=== PATIENT | female | born 1980 | race Caucasian/White ===

== ENCOUNTER → 2021-03-01 14:33 | Outpatient (CLI) | payer OTHER, SELFPAY ==
--- NOTE | 2021-03-01 14:42 | DI.RAD.S_ITS ---
PROCEDURE: XR LUMBAR SPINE 2-3V INDICATIONS: LBP/RADICULOPATHY TECHNIQUE: 3 views of the lumbar spine were acquired. COMPARISON: None. FINDINGS: Bones: 5 [id number] vertebrae are present. Trace dextrocurvature centered at the L3 level. Grade 1 spondylolisthesis at the L5-S1 level where there is mild disc degeneration. Mild L5-S1 facet joint arthropathy. No vertebral body compression fractures. No suspicious bony lesions. Soft tissues: Overlying bowel gas pattern is normal. No suspicious soft tissue calcifications. IMPRESSION: Grade 1 spondylolisthesis and mild disc degeneration at the L5-S1 level. Mild L5-S1 facet joint arthropathy. Dictated by: Abbe CULVER Interpreted: Mario Haile MD on 03/01/2021 at 16:59 Transcribed by: GERHARD on 03/01/2021 at 17:00 Approved by: Mario Haile M.D. on 03/01/2021 at 17:13
== END ==
PROVIDERS: PCP Physician Assistant Medical; Referring Provider Physician Assistant Medical; Visit Provider Physician Assistant Medical
DX: M54.5 Low back pain (principal); M51.17 Intervertebral disc disorders with radiculopathy, lumbosacral region; M47.27 Other spondylosis with radiculopathy, lumbosacral region; M43.17 Spondylolisthesis, lumbosacral region
CPT/HCPCS: 72100

== ENCOUNTER → 2021-04-13 13:53 | Outpatient (CLI) | payer BC, SELFPAY ==
--- NOTE | 2021-04-13 13:56 | DI.MRI.S_ITS ---
PROCEDURE: MR LUMBAR SPINE WO CON INDICATIONS: Spondylosis without myelopathy or radiculopathy, l TECHNIQUE: Noncontrast sagittal T1 spin echo and T2 fast echo, sagittal STIR, axial T1 and T2 fast spin echo through the lumbar spine. In cases with scoliosis, additional coronal T2 fast spin echo may be performed. COMPARISON: [facility], CR, XR LUMBAR SPINE 2-3V, 03/01/2021, 14:52. [facility] [place], CR, XR LUMBAR SPINE FLEXION EXTENSION, 04/03/2021, 15:25. FINDINGS: Image quality: Excellent. Alignment and Curvature: There is mild grade 1 anterolisthesis seen at the L5-S1 level. There are potential L5 pars defects, which are not well seen. Bone Marrow: Marrow is of normal overall signal. No acute vertebral body compression fractures. Spinal Cord: Conus medullaris terminates at the L1-L2 level. Visualized cord demonstrates normal signal and size. Paraspinous Soft Tissues: No paravertebral masses. T12-L1: Normal appearance. L1-L2: Normal appearance. L2-L3: Normal appearance. L3-L4: Normal appearance. L4-L5: The disc height and disk signal are well-preserved. Mild generalized disc bulge is seen. Mild to moderate facet hypertrophy is seen. Minimal to mild bilateral neural foraminal narrowing can be seen. No significant central canal narrowing is seen. L5-S1: The disc height and disc signal are relatively well preserved. Mild generalized disc bulge is seen. Prominent facet hypertrophy is seen at this level. There is moderate right-sided and moderate to severe left-sided neural foraminal narrowing seen. There is a degree of compression seen upon the exiting left L5 nerve root. No significant central canal narrowing is seen. IMPRESSION: Focal L5-S1 degenerative change is seen. Dictated by: Jakob Aguila M.D. on 04/13/2021 at 13:56 Approved by: Jakob Aguila M.D. on 04/13/2021 at 13:58
== END ==
PROVIDERS: PCP Physician Assistant Medical; Referring Provider Physical Medicine & Rehabilitation Pain Medicine; Visit Provider Physical Medicine & Rehabilitation Pain Medicine
DX: M47.816 Spondylosis without myelopathy or radiculopathy, lumbar region (principal); M47.817 Spondylosis without myelopathy or radiculopathy, lumbosacral region
CPT/HCPCS: 72148

== ENCOUNTER → 2021-12-04 09:23 | Outpatient (CLI) | payer BC, SELFPAY ==
[2021-12-04 12:03] LABS: COVID19 -Nasal RAPID Negative (Negative)
== END ==
PROVIDERS: PCP Physician Assistant Medical; Visit Provider Family Medicine Sleep Medicine
DX: Z20.822 Contact with and (suspected) exposure to COVID-19 (principal)
CPT/HCPCS: 87635; C9803

== ENCOUNTER 2021-12-07 16:16 | Observation (INO) | payer BC, SELFPAY ==
[2021-12-05 12:35] VITALS: BMI 27.8
[2021-12-06] VITALS (21 sets, daily range): BP systolic 103–154; BP diastolic 68–113; PULSE 75–103; RESP 10–22; TEMP 36.2–36.9; O2SAT 90–99; BMI 27.8
--- NOTE | 2021-12-06 | DI.RAD.S_ITS ---
PROCEDURE: XR LUMBAR SPINE 2-3V INDICATIONS: L5-S1 TLIF TECHNIQUE: 2 views of the lumbar spine were acquired. COMPARISON: [facility] [place], CR, XR LUMBAR SPINE FLEXION EXTENSION, 04/03/2021, 15:25. [facility], MR, MR LUMBAR SPINE WO CON, 04/13/2021, 14:13. [facility], CR, XR LUMBAR SPINE 2-3V, 03/01/2021, 14:52. FINDINGS: 2 intraoperative fluoroscopy images demonstrate discectomy and posterior fusion at L5-S1. IMPRESSION: Discectomy and posterior fusion at L5-S1. Dictated by: Veronique Lynn M.D. on 12/06/2021 at 16:51 Approved by: Veronique Lynn M.D. on 12/06/2021 at 16:52
[2021-12-06] MEDS: LACTATED RINGERS 1,000 ML 42 ML IV ×2 (08:15→10:38)
--- NOTE | 2021-12-06 08:39 | PM.PREOP ---
Pre-operative Note COVID-19 COVID-19 status: Negative Result date/Date tested (Pos, Neg/Pending): 12/05/21 Criteria for continued procedure: Expected advancement of disease process, Possibility delay results in more complex future surgery or treatment, Increased loss of function, Continuing or worsening of significant or severe pain, Deterioration of the patient's condition or overall health and Delay expected to result in less-positive ultimate med/surg outcome Interval Note History & Physical reviewed/Exam performed by Physician: Yes Changes to H&P: No
[2021-12-06] MEDS: CEFAZOLIN 2 GM/20 ML SYRINGE IV ×2 (09:05→17:03)
--- NOTE | 2021-12-06 09:17 | SUR.OPER ---
Prone on spine table, head in foam head support, padded chest and pelvic supports, gel pad at knees, lower legs supported by pillows; nipples, genitalia and toes free of pressure, arms secured on foam padded arm boards at <90 degrees abduction. Tape over blanket at thigh secured to table. Gel pad placed between heels.
[2021-12-06] MEDS: BUPIVACAINE 0.25% (PF) 30 ML, EPINEPHrine 0.15 MG INJ (09:46)
[2021-12-06] MEDS: BUPIVACAINE LIPOSOME 266 MG/20 ML VIAL INJ (11:20)
--- NOTE | 2021-12-06 12:02 | PM.OP.1 ---
Operative Date/Time/Diagnoses Date of procedure: 12/06/21 Time of procedure: 08:45 Pre-op diagnosis: 1. L5-S1 spondylolisthesis 2. L5-S1 spinal stenosis with radiculopathy Post-op diagnosis: same Procedure & Clinicians Procedure: 1. L5-S1 Postero-lateral and posterior interbody fusion 2. L5-S1 interbody cage placement. 3. L5-S1 decompressive laminectomy with bilateral facetecomies 4. L5-S1 Posterior non-segmental instrumentation 5. [place] of bone marrow from iliac crest 6. Utilization of microsurgical technique and operating microscope Same procedure as scheduled: Yes Indications: Patient has been having chronic back pain and worsening lumbar radiculopathy. Patient failed multiple conservative management with worsening pain weakness and numbness in her lower extremity. Patient has been having difficulty performing activity of daily living. After discussing risks benefits of treatment options, patient elected proceed with surgery. Surgeon: Birgit Macias Wet Process Miller Head: Irina Gallardo Click Yes if Unassisted: No Anesthesia Type: General Operative Notes Closure Type: primary Specimen(s): none sent Prosthetic devices, grafts, tissues, transplants, or devices: Globus revolve screws, Sable Cage Estimated Blood Loss (mL): 50 Blood products transfused: none Procedure in detail: Patient was seen in the preoperative area. Risks and benefits of the surgery was discussed with the patient. Informed consent was obtained from the patient and placed in the chart. Surgical site was marked. Patient was taken to the operative room. General anesthesia was administered. Prophylactic antibiotic was given to the patient less than 30 min before the incision was made. Patient was placed into a prone position on the Angel table. Patient's back was then prepped and draped in the sterile fashion. Time-out was performed at this time. Using AP and lateral C-arm imaging the interval between L5-S1 was identified and marked on patient's back. A 2 inch incision 2 in from midline was made on the left side first. The fascia was incised in line with skin incision. Globus MARS retractors was placed inside the incision and docked onto the L5 lamina. Using microsurgical technique and operating microscope, a L5 laminectomy and L5-S1 facetectomy was performed using a [place] rongeur. Patient was found have severe neural foraminal stenosis and required a total facetectomy for decompression which rendered L5-S1 grossly unstable and required a fusion procedure at the same time. There was significant amount of epidural lipomatosis contributing to additional spinal stenosis. Epidural lipomas were carefully resected from the epidural space to further decompress the epidural space. Disc space at L5-S1 was identified. And a total diskectomy was performed at L5-S1 level. The endplates were decorticated using a rasp and shaver. The total diskectomy and decortication was performed at L5-S1 level in order to to accomplish a L5-S1 fusion. The local bone from the laminectomy and facetectomy was saved for local bone grafting. After the total diskectomy and decortication was completed, Trifecta bone graft material was combined with local bone that was harvested earlier. At this time, a separate skin is incision was made over the iliac crest. A Jamshidi needle was inserted into the iliac crest through a separate skin incision. 5 cc of bone marrow aspiration was obtained through the separate skin incision using a Jamshidi needle from the iliac crest. The bone marrow aspiration was combined with local bone and the Trifecta bone grafting material. The bone grafting material was placed into the L5-S1 interbody space along with a expandable cage. The cage was expanded to its maximum height using the torque limiting screwdriver. Additional bone graft material was back filled after the cage was expanded. At this time a mirror image incision was made on the right side. The fascia was incised in line with the skin incision. Globus MARS retractor was inserted and docked onto the L5-S1 posterolateral gutter. Using the power drill, posterior-lateral decortication was performed at L5-S1 level until bleeding cortical bone was identified. The remaining bone grafting material was placed into the L5-S1 posterior lateral gutter he order to accomplish posterolateral fusion at the L5-S1 level. Using the double C-arm technique, pedicle screws were placed into the L5-S1 pedicles bilaterally. This was done by placing the Jamshidi needle into the pedicles, then placing the guidewires over the Jamshidi needle, and finally placing the cannulated screws over the guidewires bilaterally. After the pedicle screws were placed, 2 titanium rods was locked into the heads of the pedicle screws using locking caps and torque limiting screwdriver. Thread reducers were used to reduce the patient's spondylolisthesis. Anatomic reduction was accomplished. After all the hardware was placed, and confirmed with AP and lateral C-arm imaging, the wound was then irrigated with sterile normal saline and packed with Ray-Kevon gauze for 3 min to accomplish hemostasis. After the gauze was removed the deep fascia was closed with #1 Vicryl suture. The subcutaneous layer was closed with 2-0 Vicryl. The skin was closed with skin marleen. Patient tolerated the procedure well. There were no complications. Complications: none Post-operative Condition: stable Disposition: PACU Plan for aftercare: Admit to inpatient hospital
[2021-12-06] MEDS: HYDROMORPHONE 2 MG INJ IV ×2 (12:27→12:48)
[2021-12-06] MEDS: OXYCODONE IR 5 MG TABLET PO (12:39)
[2021-12-06] MEDS: HYDROMORPHONE 0.5 MG INJ IV ×3 (13:55→22:26)
[2021-12-06] MEDS: SODIUM CHLORIDE 0.9% 1,000 ML 100 ML IV (14:01)
[2021-12-06] MEDS: OXYCODONE IR 5 MG TABLET 10 MG PO ×2 (15:04→20:09)
[2021-12-06] MEDS: NICOTINE 14 PATCH 14 MG TOP (17:58)
--- NOTE | 2021-12-06 19:27 | PC.NURSE ---
Pt arrived from PACU around 1400, A&Ox4, tearful and c/o back pain 03/16. Sensation intact to LE, + pedal pulses. Dressing to lower back with small amount of shadowing, area marked. Pt oriented to room and call light. Around 1600, dressing noted to have increased drainage. Area marked. Around 1800, dressing leaking. Reinforced with 2 abd pads, Dr. Macias informed. Will continue to monitor.
[2021-12-06] MEDS: ATORVASTATIN 20 MG TABLET 10 MG PO (20:10)
[2021-12-06] MEDS: DOCUSATE 100 MG CAPSULE PO (20:10)
[2021-12-06] MEDS: SERTRALINE 50 MG TABLET 100 MG PO (20:10)
[2021-12-06] MEDS: SENNOSIDES 8.6 MG TABLET 17.2 MG PO (20:10)
[2021-12-06] MEDS: hydrOXYzine pamoate 25 MG CAPSULE PO (21:16)
[2021-12-06] MEDS: IBUPROFEN 600 MG TABLET PO (22:25)
[2021-12-06] MEDS: diazePAM 5 MG TABLET PO (22:47)
[2021-12-07] MEDS: CEFAZOLIN 2 GM/20 ML SYRINGE IV (00:51)
[2021-12-07] MEDS: HYDROMORPHONE 2 MG TABLET PO ×3 (00:52→12:39)
[2021-12-07 04:29] VITALS: BP 100/66; PULSE 80; RESP 16; TEMP 36.6; O2SAT 95
[2021-12-07] MEDS: DOCUSATE 100 MG CAPSULE PO ×2 (07:48→21:10)
[2021-12-07] MEDS: SERTRALINE 50 MG TABLET 100 MG PO ×2 (07:48→21:10)
[2021-12-07 08:29] VITALS: RESP 16; O2SAT 95
[2021-12-07 08:31] VITALS: BP 122/86; PULSE 84; RESP 17; TEMP 36.7; O2SAT 98
[2021-12-07] MEDS: OXYBUTYNIN 5 MG ER TAB 15 MG PO (09:15)
[2021-12-07] MEDS: LORazepam 1 MG TABLET PO (09:15)
[2021-12-07] MEDS: MECLIZINE HCL 12.5 MG TABLET 25 MG PO (09:15)
--- NOTE | 2021-12-07 09:59 | PC.NURSE ---
Addendum entered by Elisa Henning R.N. 12/07/21 14:34: Patient was up with PT earlier and had tear inducing pain afterwards, administered PRN pain medication and spasm relief. Upon reassessment patient reports pain is 3/10 and was able to get some sleep. Created a plan with patient to administer PO pain medication at available time to stay on top of pain for this afternoons PT session. Patient on board. Will continue to monitor. Call light in reach. Patient denies further needs at this time. Original Note: Patient A/Ox3, up to restroom with FWW and SBA. Denies N/V, SOB or chest pain. Endorses pain 4/10, periodic spasms, reports pain has improved with PO medication she received last night. Will continue to monitor. Reinforced dressing is CDI. VSS. CMS intact. Patient reports voiding without complication. Currently SL, tolerating intake. Denies abdominal pain or discomfort. BT active x 4. remains bedside. Call light in reach. Denies further needs at this time.
[2021-12-07] MEDS: diazePAM 5 MG TABLET PO ×2 (10:05→18:40)
--- NOTE | 2021-12-07 10:09 | OT.IP.EVAL ---
Current Diagnoses Spondylolisthesis, lumbosacral region (12/06/21) Spinal stenosis, lumbar region without neurogenic claudication (12/06/21) Surgery Performed Operation Date: 12/06/21 08:45 Actual Procedures p L5-S1 TLIF(Not Applicable) - Birgit Macias MD Past Medical History (Last Reviewed 12/07/21 @ 10:49 by Gila Carpenter PA-C) Anxiety Asthma Depression Easy bruisability History of section History of hysterectomy HLD (hyperlipidemia) Sinus drainage Spinal stenosis Spondylolisthesis [place] teeth removed Surgical History (Last Reviewed 12/07/21 @ 10:49 by Gila Carpenter PA-C) History of section History of hysterectomy [place] teeth removed Occupational Therapy Inpatient Evaluation/Re-Eval M2 OT-IP Current Condition Start: 12/07/21 12:21 Freq: Status: Active Protocol: Document 12/07/21 10:37 [facility] (Rec: 12/07/21 12:54 [facility] [id number]) Occupational Therapy Current Condition Current Condition Evaluation Date 12/07/21 Treatment Diagnosis S/p L5-S1 TLIF Diagnosis Onset Date 12/06/21 M3 OT- IP Subjective and Pain Start: 12/07/21 12:21 Freq: Status: Active Protocol: Document 12/07/21 10:37 [facility] (Rec: 12/07/21 12:54 [facility] [id number]) OT- Subjective Occupational Therapy Visit Type Type Initial Evaluation Visit Start Time 10:37 Visit Stop Time 11:05 Total Visit Minutes 28 Occupational Therapy Visit Comments Patient Comments Pt agreed to get up for OT eval. Patient/Caregiver Goals To go home. OT Pain Assessment Pain When Pain Assessed At Rest Pain Present Pain Present Pain Reported Location Lower Back Intensity 3 Scale Used Numeric (0 - 10) M4 OT- IP ADL's Start: 12/07/21 12:21 Freq: Status: Active Protocol: Document 12/07/21 10:37 [facility] (Rec: 12/07/21 12:54 [facility] [id number]) OT SYG-Tauy-Wjasccv General Evaluation Self-Feeding Ability Independent OT ADL-Grooming General Evaluation Areas Needing Assistance Retrieving/Set-up of Grooming Items OT ADL-Oral Care General Eval Oral Care Ability Standby Assistance Comments Oral Care Comments vc to hinge at her hips to spit or spit into a cup to best follow her back precautions OT ADL-Dressing General Eval Lower Body Dressing Ability Maximum Assistance Areas Needing Assistance Socks Comments OT Dressing Comments Initiated going over LB dressing equipment with pt. Pt states her will just assist her. OT ADL-Toileting General Evaluation Toileting Ability Maximum Assistance Areas Needing Assistance Manage Clothing,Perform Perineal Hygiene Comments OT Toileting Comments Pt unable to reach at this time while seated or standing. Showed pt example of toilet paper aid and that wet wipes would also be beneficial for her to use. Able to show pt technique of holding the FWW in one hand while the other one in assisting go help pull up /down the brief. While coming to stand pt states felt a pop, however noted no pain, nursing notified. When asked what it felt like, pt states, felt like when you pop your back. OT ADL-Bathing Comments OT Bathing Comments Not performed. M5 OT- IP IADL's Start: 12/07/21 12:21 Freq: Status: Active Protocol: Document 12/07/21 10:37 [facility] (Rec: 12/07/21 12:54 [facility] [id number]) OT-Instrumental Activities of Daily Living Home Safety Awareness Home Safety Comments Pt a little groggy and needing cues for back precautions and safety. At this time would be beneficial to have her to assist her for all her needs. M6 OT- IP Functional Cognition Start: 12/07/21 12:21 Freq: Status: Active Protocol: Document 12/07/21 10:37 [facility] (Rec: 12/07/21 12:54 [facility] [id number]) Cognitive Factors Limiting Selfcare Function Cognitive Ability Level of Alertness Alert Patient Orientation Name,Place,Situation Attention Span Ability Capable of Focused Attention, Capable of Sustained Attention Ability to Follow Commands Able to Follow One Step Commands Cognitive Comments Cognitive Assessment Comments Pt able to follow commands for bed mobility, toileting , and dressing needs. Pt a little groggy and needing cues not to hold her breath. OT- Vision and Hearing OT- Hearing Assessment OT- Hearing Assessment WFL OT- Vision Assessment Visual Acuity Glasses All The Time M7 OT- IP Mobility and Balance Start: 12/07/21 12:21 Freq: Status: Active Protocol: Document 12/07/21 10:37 [facility] (Rec: 12/07/21 12:54 [facility] [id number]) OT- Bed Mobility Assessment Rolling Type of Rolling Roll to Right Level of Assistance Contact Guard Assistance Supine to Sit Supine to Sit Assist Minimal Assistance Sit to Supine Sit to Supine Assist Moderate Assistance Scooting Scooting to Edge of Bed Contact Guard Assistance OT-Transfer Assessment Sit to and From Stand Sit to and from Stand Minimal Assistance,Moderate Assistance Transfers Transfer Ability Minimal Assistance Technique Transfer Destination Bed,Toilet Transfer Technique Stand Step Pivot Devices Transfer Assistive Devices Gait Belt,Front Wheeled Walker Comments Mobility Comments Pt needing min/mod to stand especially without use of grab bar or surface to push up from. Pt tends to want to grab the FWW to stand. Educated if doing so would be best to have her hold the FWW in place. Pt's states to get a FWW for her. OT- Balance Assessment Sitting Balance and Reactions Static Sitting Balance Ability Good Dynamic Sitting Balance Ability Fair Standing Balance and Reactions Static Standing Balance Ability Fair M9 OT- IP Assessment and Plan Start: 12/07/21 12:21 Freq: Status: Active Protocol: Document 12/07/21 10:37 [facility] (Rec: 12/07/21 12:54 [facility] [id number]) OT Summary Assessment and Plan Potential Rehabilitation Potential Good Analytic Complexity at Evaluation Low Summary OT Impairments Pain,Balance,Functional Mobility,Grooming,Dressing, Toileting,Bathing,Toilet Transfers,Shower Transfers, Activity Tolerance Progress Towards Goals Slow Progress due to Pain Assessment Summary Pt low complexity and main barriers are steps, pain, pt tends to hold her breath, and now needing extensive assist for dressing, toileting and bathing needs. Pt states to just have her assist her needs at home. Pt to go home when medically stable and her to be home to assist. Goals Grooming Goal Independent Dressing Goal Minimal Assistance Toileting Goal Minimal Assistance Bathing Goal Minimal Assistance Toilet Transfer Goal Standby Assistance Shower Transfer Goal Standby Assistance Patient/Caregiver Education Goal Caregiver Independent Assisting Patient Days to Meet Goals 5 Frequency of Treatment Frequency Of Treatment Once a Day Treatment Plan OT Treatment Plan ADL Training,Functional Cognition Training,Functional Mobility,Patient/Family Education,Discharge Planning Other Treatment Recommendations and Next shower/caregiver training Treatment Focus Discharge Recommendations OT Discharge Recommendations Home with 24/7 Assist Available Home Equipment Needs FWW Transportation Needs at Discharge Private Vehicle
--- NOTE | 2021-12-07 10:41 | P.PN_ITS ---
Subjective Subjective Date Patient Seen: 12/07/21 Time Patient Seen: 10:48 Interval history: Patient is complaining of moderate to severe low back pain. She also has bilateral lower extremity pain. She denies any new numbness or tingling. No nausea or vomiting. She does have several sets of stairs at home. She is just now getting up with physical therapy. Exam Vital Signs (past 8 hours): - 12/07/21 04:29 12/07/21 08:29 12/07/21 08:31 Temperature 97.8 F 98.0 F Pulse Rate 80 84 Respiratory Rate 16 16 17 Blood Pressure 100/66 122/86 Pulse Oximetry 95 95 98 Fraction of Inspired Oxygen 21 Oxygen Delivery Method Room Air Oxygen Flow Rate 0 Narrative Exam Narrative: 41-year-old female, sitting comfortably at the side of the bed, no acute distress. Dressing is reinforce but it is current lead clean, dry, intact. Bilateral lower extremity: Motor function is grossly intact, sensation is grossly intact to light touch, calves are soft and nontender to palpation. PFSH Medical History Anxiety Asthma Depression Easy bruisability HLD (hyperlipidemia) Sinus drainage Spinal stenosis Spondylolisthesis Surgical History History of section History of hysterectomy [place] teeth removed Social History household members: spouse and children Smoking Status: Current every day smoker alcohol intake: current Assessment & Plan Post-op Postoperative Procedures: Procedures Operation Date: 12/06/21 08:45 Actual Procedure Side Surgeon p L5-S1 TLIF Not Applicable Birgit Macias MD Postoperative day: 1 Postoperative status: marginal pain control Postoperative status narrative: Stable status post L5-S1 TLIF Postoperative plan narrative: -mobilize with PT. Limit bending, lifting, twisting. Weightbearing as tolerated with front wheel walker -continue with current pain regimen, the patient required p.o. Dilaudid this morning, which is controlling her pain -DC home today versus tomorrow, depending on PT clearance and how she does with stairs and pain control. Quality VTE Deep Vein Thrombosis/Pulmonary Embolism Present on Admission: No
--- NOTE | 2021-12-07 11:45 | PT.IIE ---
Current Diagnoses Spondylolisthesis, lumbosacral region (12/06/21) Spinal stenosis, lumbar region without neurogenic claudication (12/06/21) Surgery Performed Operation Date: 12/06/21 08:45 Actual Procedures p L5-S1 TLIF(Not Applicable) - Birgit Macias MD Medical History (Last Reviewed 12/07/21 @ 10:49 by Gila Carpenter PA-C) Anxiety Asthma Depression Easy bruisability HLD (hyperlipidemia) Sinus drainage Spinal stenosis Spondylolisthesis Physical Therapy Inpatient Evaluation/Re-Eval M1 PT/OT-IP Prior Functional Status Start: 12/07/21 12:46 Freq: NEEDED Status: Active Protocol: Document 12/07/21 11:45 AB (Rec: 12/07/21 12:56 AB [id number]) Medical Review Prior Functional Status Medical History Reviewed Yes Communication able to make needs known Mobility and Gait pt stated that she is independent with all mobilities and ambulation without AD Social History Household Members spouse,children Living Arrangements House Number of Floors (Floors) 3 or More Floors Number of Stairs To Enter/Railing? 8 steps B rails +landing +8 steps B rails to get to living area where pt will stay Home Environment Standard Height Toilet,Tub/ Shower Home Equipment Front Wheel Walker,Shower Seat without Backrest,Hand Held Shower,Grab Bars In Shower M2 PT-IP Current Condition Start: 12/07/21 12:46 Freq: NEEDED Status: Active Protocol: Document 12/07/21 11:45 AB (Rec: 12/07/21 12:56 AB [email or web address]) Physical Therapy Current Condition Current Condition Evaluation Date 12/07/21 Treatment Diagnosis s/p L5S1 TLIF; difficulty in walking Onset Date 12/06/21 M3 PT-IP Subjective Start: 12/07/21 12:46 Freq: NEEDED Status: Active Protocol: Document 12/07/21 11:45 AB (Rec: 12/07/21 12:56 AB [id number]) Subjective Physical Therapy Visit Type Type Initial Evaluation Visit Start Time 11:45 Visit Stop Time 12:15 Total Visit Minutes 30 Number of CORE FITTER Visits 0 Physical Therapy Visit Comments Patient Comments able to make needs known Therapy Pain Assessment Pain When Pain Assessed At Rest Pain Present Pain Present Pain Reported Location Lower Back Intensity 5 Scale Used increases with mobility Pain Behaviors Guarding,Wincing Pain Management Techniques Apply Cold,Distraction, Modification of Treatment,Re- positioning,Timing of Activity with Medications M4 PT-IP Mobility and Gait Start: 12/07/21 12:46 Freq: NEEDED Status: Active Protocol: Document 12/07/21 11:45 AB (Rec: 12/07/21 12:56 AB [email or web address]) PT-Bed Mobility Assessment Rolling Type of Rolling Log Rolling Level of Assist Minimal Assistance Supine to Sit Supine to Sit Minimal Assistance PT-Transfer Assessment Sit to and From Stand Sit to and from Stand Moderate Assistance,1 Person Assistance,Use of Upper Extremities Equipment Transfer Assistive Device Gait Belt,Front Wheeled Walker Orthotic/Prosthetic Devices or Brace: No Transfers Transfer Destination Toilet Transfer Technique ambulated Transfer Ability Level of Assist Minimal Assistance Comments Mobility Comments reviewed back precautions with pt and pt required cues to recall. spouse in room with pt. pt completed supine to sit log roll min A and max cues for techniques. pt able to sit on EOB SBA. completed sit to stand mod A and cues and requested to use the toilet and ambulated using FWW min A. completed sit to stand fromt he toilet using grab bar mod A and cues and required min A for standing balance while pt completes hygiene care and brief management. pt ambulated towards the sink using FWW min A, min A for standing balance while completing handwashing. ambulated more in room using FWW ~ 10 ft and just wants to sit on chair for now. positioned pt on chair. set up for lunch. table and call light next to pt. informed pt and spouse regarding caregiver training in the afternoon and agreed. Gait Assessment Gait Gait Assistance Required: Minimum Assistance Distance (Feet) 25 Able to Maintain Weight Bearing Status Yes During Gait PT-Balance Assessment Sitting Balance and Reactions Static Sitting Balance Ability Good Dynamic Sitting Balance Ability Fair Standing Balance and Reactions Static Standing Balance Ability Fair Dynamic Standing Balance Ability Fair Device Used FWW M5 PT-IP Objective Assessments Start: 12/07/21 12:46 Freq: NEEDED Status: Active Protocol: Document 12/07/21 11:45 AB (Rec: 12/07/21 12:56 AB [email or web address]) Orientation Orientation/Cognition Level of Alertness Alert Orientation Name Language Function Ability No Deficits Noted Safety Awareness Decreased Safety Awareness Memory Description Short Term Impaired Gross Range of Motion Lower Extremity ROM Assessment Within Functional Limits Strength Lower Extremity Strength Assessment Bilaterally Impaired Hip 3+/5 Knee 4-/5 Sensation Assessment Sensation Gross Sensation WNL Muscle Tone Muscle Tone WNL Yes M6 PT-IP Treatment Start: 12/07/21 12:46 Freq: NEEDED Status: Active Protocol: Document 12/07/21 11:45 AB (Rec: 12/07/21 12:56 AB [email or web address]) Physical Therapy Treatment Education Education Provided Precautions,Weight Bearing Status,Safety M7 PT-IP Assessment and Plan Start: 12/07/21 12:46 Freq: NEEDED Status: Active Protocol: Document 12/07/21 11:45 AB (Rec: 12/07/21 12:56 AB [email or web address]) PT Summary Assessment and Plan Potential Rehabilitation Potential Fair Status of Condition at Evaluation Evolving Summary Impairments Pain,ROM,Strength,Balance, Coordination,Sensation,Tone, Cognition,Bed Mobility, Transfers,Gait,Activity Tolerance Assessment Summary pt requiring min to mod A with mobility using fWW and c/o increase back pain affecting mobility. pt plans to go home with spouse to assist her. will conduct caregiver training when appropriate. pt also has ~ 16 steps with B rails to get to main living area of the house and needs to be able to safely complete prior to d/c home. pt with c /o increas pain this morning and presents with decrease activity tolerance and unable to ambulate farther or do stair climbing. will continue to assess progress. Goals Bed Mobility Goal Standby Assistance Transfer Goal Standby Assistance,Front Wheeled Walker Gait Goal Standby Assistance,Front Wheel Walker Gait Distance 200 Other Goals up/down 16 steps B rails SBA Days to Meet Goals 10 Frequency of Treatment Frequency Of Treatment Twice a Day Treatment Plan Physical Therapy Treatment Plan Bed Mobility Training,Transfer Training,Gait Training, Therapeutic Exercise,Balance Retraining,Post Op Education, Discharge Planning,Hot or Cold Pack,Neuromuscular Re-ed, Coordination Retraining,Manual Therapy Precautions Lumbar Precautions Log Roll,No Twisting,Limit Bending,Lifting Restriction of 10 lbs,Gait Belt above Incisional Area Recommendations To Nursing Amount of Assist Needed 1 Person Assist Discharge Recommendations PT Discharge Recommendations Home with 29/04 Assist Available,Home Health Transportation Needs at Discharge Private Vehicle
[2021-12-07] MEDS: hydrOXYzine pamoate 25 MG CAPSULE PO ×2 (12:55→21:13)
[2021-12-07] MEDS: OXYCODONE IR 5 MG TABLET 10 MG PO ×3 (13:07→21:12)
[2021-12-07] MEDS: IBUPROFEN 600 MG TABLET PO ×2 (13:08→21:11)
--- NOTE | 2021-12-07 14:17 | CM.DANOTE ---
Patient is a 41 yo female who was admitted on 12/06/21 for TLIF fusion. Pt has [employer] for insurance and her PCP is Ronnell Hernandez. EMR was reviewed. Per Ortho MD, pt tolerated procedure well and per PA pt stable but with some pain and likely not stable for d/c yet today, awaiting further PT. Per PT/OT, pt was able to participate and still need to do CG training and stairs as pt has about 16 steps to enter. Recommending home with assist and possible HH. SW met bedside with pt and spouse briefly as pt was very tired and getting painful and SW explained role and they confirm they live at home in [place] with children and pt is independent at baseline and drives and does not use DME. Spouse confirms he can assist at d/c and seems supportive and unclear if pt will meet criteria for homebound status for HH and SW to follow for further PT/OT towards determining d/c needs especially after stairs training. Plan: SW to follow closely for plan of d/c home with supportive spouse and r/o HH. ROBINSON Dey Discharge Planning/Care Management CM Discharge Assessment Start: 12/07/21 14:14 Freq: Status: Active Protocol: Document 12/07/21 14:14 BF (Rec: 12/07/21 14:16 BF [id number]) Discharge Planning Assessment Assigned Environmental Engineering Manager ROBINSON Guillaume DPOA/Assigned Designee Name informally spouse Michael Contact Information [phone] Advance Directives? Yes Advance Directives on File No History Provided By Patient,Significant Other, Medical Record Has Patient been admitted in last 30 No days? Prior Living Arrangements House Household Members spouse,children Type of transporation used prior to Drives own vehicle admit Independent with ADL's Yes Is patient alert and oriented? Yes Caregiver for Another Yes Community Services used prior to Physical Therapy admission: Patient/Family Preference Home with Home Health,OP PT Therapy Comment r/o HH, although back surgery and may not meet Homebound status and therapy Barriers to Discharge No Discharge Plan Home Transportation Arrangement Spouse bedside and can transport Additional Comment r/o HH vs outpt Whiteboard Updated in Patient Room with Yes name and ext. # of Environmental Engineering Manager Review Status In Process Please Provide Date Initial DC 12/07/21 Assessment Was Performed Next Review Type Continued Stay Review Pre-Anesthesia Assessment Start: 12/05/21 12:35 Freq: Status: Complete Protocol: Document 12/05/21 12:35 CAB (Rec: 12/05/21 13:23 CAB [id number]) Pre-Anesthesia Assessment PAC Comment Pt would like a nicotine patch while in-house Patient Information Reviewed Via Phone Assessment Assessment Completed With Patient H&P Completed Within 30 Days Yes Diagnostic Results BMP/CMP,CBC Comment Outside labs scanned, COVID screen @ [facility] 12/04/21 Negative Primary Care Provider Ronnell Hernandez Seen Specialist in Last 12 Months Yes Specialist Seen Orthopedist Primary Language Kinyarwanda Quarter Lining Smoother Required No Height 154.94 cm Weight 66.678 kg Body Mass Index (BMI) 27.8 Hearing Ability Normal Visual Assist Glasses Dentition Type Teeth, Natural Present Barriers to Learning None Hx Anesthesia Reactions No Hx Family Anesthesia Reaction No Hx Malignant Hyperthermia No Hx Blood Transfusions No Anesthesia Review Requested No Transformer Builder No alcohol intake current alcohol intake frequency 3 or more drinks per day Smoking Status Current every day smoker Tobacco type cigarettes Smoking packs per day 1 Substance Use Type other Pain Present Pain Reported Musculoskeletal Symptoms Back Pain,Numbness,Radiating Pain into Limb History of Falling (Recent or History of Yes ) Patient is completely paralyzed or No completely immobile Mental Status Oriented to own ability Is patient on oxygen? No Does patient have [place]/SOB Yes: r/t seasonal allergies, asthma Hx Sleep Apnea No Currently Taking a Beta Marisabel No Can You Climb a Flight of Stairs Without Yes SOB Hx Chest Pain No Hx SOB Yes: r/t seasonal allergies, asthma Hx Syncope or Dizziness Yes: Vertigo Anti-Coagulant Therapy No Has a Liquid Yeast Supervisor No Cardiac Testing No Hx Pacemaker/ICD No Pacemaker Rep Required? 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 Received a COVID vaccine? Yes Received all doses? Yes Marital Status Lives With spouse,children Prior Living Arrangements House Number of Floors (Floors) Two Floors Support System Child/Children,Spouse Does the Patient Have Assistance After Yes Surgery Patient Discharge Plan Description Return Home Comment Pt advised overnight length of stay per surgeon Feels Safe in Current Environment Yes Been Physically Hurt or Threatened By a No Person in Current Environment Do you have thoughts of harming yourself None or others? Are you currently considering suicide? No Do you have a plan to hurt yourself or No Plan others? Do You Have Any Spiritual Beliefs That No May Affect Your HC Choices? Do You Have Any Cultural Practices That No May Affect Your HC Choices? Comment Caodaism Who Can We Speak to About Patient's Care Family, friends Identifying Code for Release of Patient Declines to issue Information Health Care Proxy/Next of Kin Jaspal ()Scarlet ( daughter) Health Care Proxy Phone Number Jaspal: [phone] Scarlet: [phone] Emergency Contact Name Jaspal ()Scarlet ( daughter) Emergency Contact Phone Number Jaspal: [phone] Scarlet: [phone] Advance Directives? Yes Advance Directives on File No Requested Patient Bring Advanced Yes Directives DOS Power of Rubber Down Yes Power of Rubber Down Name Jaspal () Power of Rubber Down PAC Instructions Durable medical equipment, Medications to take/avoid, Nasal antibiotic,No ETOH/ petroleum product on skin DOS, NPO,Sensory aids,Sturdy shoes/ comfortable clothes,Do not bring valuables and remove jewelry
--- NOTE | 2021-12-07 15:10 | PT.IPTN ---
Current Diagnoses Spondylolisthesis, lumbosacral region (12/07/21) Spinal stenosis, lumbar region without neurogenic claudication (12/07/21) Surgery Performed Operation Date: 12/06/21 08:45 Actual Procedures p L5-S1 TLIF(Not Applicable) - Birgit Macias MD Physical Therapy Treatment Note M2 PT-IP Current Condition Start: 12/07/21 12:46 Freq: NEEDED Status: Active Protocol: Document 12/07/21 11:45 AB (Rec: 12/07/21 12:56 AB [email or web address]) Physical Therapy Current Condition Current Condition Evaluation Date 12/07/21 Treatment Diagnosis s/p L5S1 TLIF; difficulty in walking Onset Date 12/06/21 M3 PT-IP Subjective Start: 12/07/21 12:46 Freq: NEEDED Status: Active Protocol: Document 12/07/21 14:43 KS (Rec: 12/07/21 16:38 KS [id number]) Subjective Physical Therapy Visit Type Type Treatment Note Visit Start Time 14:43 Visit Stop Time 15:10 Total Visit Minutes 27 Number of OLIVE PICKER Visits 1 Physical Therapy Visit Comments Patient Comments Pt agreeable to work w/ therapy. Therapy Pain Assessment Pain When Pain Assessed At Rest Pain Present Pain Present Pain Reported Location Lower Back Intensity 3 Scale Used increases with mobility Pain Behaviors Guarding,Wincing Pain Management Techniques Apply Cold,Distraction, Modification of Treatment,Re- positioning,Timing of Activity with Medications M4 PT-IP Mobility and Gait Start: 12/07/21 12:46 Freq: NEEDED Status: Active Protocol: Document 12/07/21 14:43 KS (Rec: 12/07/21 16:38 KS [id number]) PT-Bed Mobility Assessment Rolling Type of Rolling Log Rolling,Roll to Left Level of Assist Contact Guard Assistance Supine to Sit Supine to Sit Minimal Assistance,1 Person Assistance Sit to Supine Sit to Supine Minimal Assistance,1 Person Assistance Scooting Scooting to Edge of Bed Contact Guard Assistance PT-Transfer Assessment Sit to and From Stand Sit to and from Stand Contact Guard Assistance,1 Person Assistance,Use of Upper Extremities Equipment Transfer Assistive Device Gait Belt,Front Wheeled Walker Orthotic/Prosthetic Devices or Brace: No Transfers Transfer Destination Bed,Wheelchair Transfer Technique ambulated w/ FWW Transfer Ability Level of Assist Minimal Assistance Comments Mobility Comments Pt in bed upon arrival and able to recall 3/3 spinal precautions. CGA for logroll and Min A for sidelying<>sit. CGA for scooting EOB and CGA w / cues for hand placement for sit<>Stand w/ FWW. Demonstrated gait belt application and stabilizing FWW to pts spouse and he verbalized understanding. Pt BP: 104/73 and denied lightheadedness. Pt ambulated ~50 ft from room to practice steps. She then ascended/ descended 3 steps x3 w/ bilateral hand rails and step to pattern CGA on first set by this OLIVE PICKER and CGA by on 2nd and 3rd sets. Pt sat in w/c for transport back to room due to increase in pain. CGA for sit<>stand from w/c and stand<>sit EOB. Min A and cues for sit<>sidelying and scooting back in bed. Pt left in bed w/ alarm on and all needs in reach. Gait Assessment Gait Gait Assistance Required: Contact Guard Assist Distance (Feet) 60 Able to Maintain Weight Bearing Status Yes During Gait Assistive Devices Assistive Device Gait Belt,Front Wheeled Walker Gait Deviations General Gait Pattern Decreased Feet Clearance, Narrow Based Gait Factors Limiting Gait Function Factors Limiting Gait Function Decreased Activity Tolerance, Pain Comments Gait Comments Pt ambulated a total of 60 ft w/ FWW CGA, decreased foot clearance and NBOS. Good use of FWW and w/ good upright posture and forward gaze. Stair Climbing Assessment Evaluation Level of Assist On Stairs Contact Guard Assistance,1 Person Assistance Devices Stair Climbing Assistive Devices Left Railing,Right Railing Technique/Endurance Stair Climbing Direction Ascend and Descend Stair Climbing Technique Step to Step Number of Steps Climbed 3 Stair Climbing Set # Repetitions (reps) 3 Comments Stair Climbing Comments Pt ascended/descended 9 total steps w/ CGA and step to pattern utlizing bilateral hand rails. Able to complete w / providing appropriate assist. Pt has 16 steps to get to bedroom however has split level home and has couch after 8 steps that she can rest on if needed before ascending final 8 steps to bedroom. Pt and spouse state they feel safe to navigate steps at home. PT-Balance Assessment Sitting Balance and Reactions Static Sitting Balance Ability Good Dynamic Sitting Balance Ability Fair Standing Balance and Reactions Static Standing Balance Ability Good Dynamic Standing Balance Ability Fair Device Used FWW M5 PT-IP Objective Assessments Start: 12/07/21 12:46 Freq: NEEDED Status: Active Protocol: Document 12/07/21 11:45 AB (Rec: 12/07/21 12:56 AB [id number]) Orientation Orientation/Cognition Level of Alertness Alert Orientation Name Language Function Ability No Deficits Noted Safety Awareness Decreased Safety Awareness Memory Description Short Term Impaired Gross Range of Motion Lower Extremity ROM Assessment Within Functional Limits Strength Lower Extremity Strength Assessment Bilaterally Impaired Hip 3+/5 Knee 4-/5 Sensation Assessment Sensation Gross Sensation WNL Muscle Tone Muscle Tone WNL Yes M6 PT-IP Treatment Start: 12/07/21 12:46 Freq: NEEDED Status: Active Protocol: Document 12/07/21 14:43 KS (Rec: 12/07/21 16:38 KS [id number]) Physical Therapy Treatment Education Education Provided Precautions,Weight Bearing Status,Safety Other Treatments Other Treatment Performed Initiated caregiver training w / pts spouse who was shown how to apply gait belt, assist w/ transfers and FWW stabilization, and getting into and out of bed. He was able to assist pt w/ stairs. Will benefit from another caregiver session to practice and assess carryover. M7 PT-IP Assessment and Plan Start: 12/07/21 12:46 Freq: NEEDED Status: Active Protocol: Document 12/07/21 14:43 KS (Rec: 12/07/21 16:38 KS [id number]) PT Summary Assessment and Plan Potential Rehabilitation Potential Good Status of Condition at Evaluation Evolving Summary Impairments Pain,ROM,Strength,Balance, Coordination,Sensation,Tone, Cognition,Bed Mobility, Transfers,Gait,Activity Tolerance Assessment Summary Pt requring CGA to Min A for mobility this PM and able to recall spinal precautions. Pt ambulated ~60 ft total and ascended/descended 9 steps w/ CGA and BHR. Initiated caregiver training w/ pt spouse however they will benefit from one additional session to ensure pt spouse has good carryover and is able to assist pt in and out of bed while maintaining spinal precautions. Anticipate pt will be able to return home w/ assistance. Goals Bed Mobility Goal Standby Assistance Transfer Goal Standby Assistance,Front Wheeled Walker Gait Goal Standby Assistance,Front Wheel Walker Gait Distance 200 Other Goals up/down 16 steps B rails SBA Days to Meet Goals 10 Frequency of Treatment Frequency Of Treatment Twice a Day Treatment Plan Physical Therapy Treatment Plan Bed Mobility Training,Transfer Training,Gait Training, Therapeutic Exercise,Balance Retraining,Post Op Education, Discharge Planning,Hot or Cold Pack,Neuromuscular Re-ed, Coordination Retraining,Manual Therapy Precautions Lumbar Precautions Log Roll,No Twisting,Limit Bending,Lifting Restriction of 10 lbs,Gait Belt above Incisional Area Recommendations To Nursing Amount of Assist Needed 1 Person Assist Discharge Recommendations PT Discharge Recommendations Home with 24/ Assist Available,Home Health Transportation Needs at Discharge Private Vehicle
[2021-12-07 17:59] VITALS: BP 128/70; PULSE 84; RESP 16; TEMP 36.4; O2SAT 97
[2021-12-07] MEDS: SENNOSIDES 8.6 MG TABLET 17.2 MG PO (21:10)
[2021-12-07] MEDS: ATORVASTATIN 20 MG TABLET 10 MG PO (21:11)
[2021-12-07] MEDS: NICOTINE 14 PATCH 14 MG TOP (23:02)
[2021-12-08] MEDS: OXYCODONE IR 5 MG TABLET 10 MG PO ×4 (00:11→09:15)
[2021-12-08 00:16] VITALS: BP 103/66; PULSE 85; RESP 16; TEMP 36.6; O2SAT 94
[2021-12-08 04:36] VITALS: BP 101/66; PULSE 74; RESP 16; TEMP 36.6; O2SAT 94
[2021-12-08] MEDS: IBUPROFEN 600 MG TABLET PO (05:52)
[2021-12-08] MEDS: DOCUSATE 100 MG CAPSULE PO (08:40)
[2021-12-08] MEDS: OXYBUTYNIN 5 MG ER TAB 15 MG PO (08:40)
[2021-12-08] MEDS: MECLIZINE HCL 12.5 MG TABLET 25 MG PO (08:40)
[2021-12-08] MEDS: SERTRALINE 50 MG TABLET 100 MG PO (08:41)
[2021-12-08] MEDS: LORazepam 1 MG TABLET PO (08:41)
--- NOTE | 2021-12-08 09:45 | PT.IPTN ---
Current Diagnoses Spondylolisthesis, lumbosacral region (12/07/21) Spinal stenosis, lumbar region without neurogenic claudication (12/07/21) Arthrodesis status (12/07/21) Surgery Performed Operation Date: 12/06/21 08:45 Actual Procedures p L5-S1 TLIF(Not Applicable) - Birgit Macias MD Physical Therapy Treatment Note M2 PT-IP Current Condition Start: 12/07/21 12:46 Freq: NEEDED Status: Discharge Protocol: Document 12/07/21 11:45 AB (Rec: 12/07/21 12:56 AB [id number]) Physical Therapy Current Condition Current Condition Evaluation Date 12/07/21 Treatment Diagnosis s/p L5S1 TLIF; difficulty in walking Onset Date 12/06/21 M3 PT-IP Subjective Start: 12/07/21 12:46 Freq: NEEDED Status: Discharge Protocol: Document 12/08/21 09:33 [place] (Rec: 12/08/21 11:43 KS [id number]) Subjective Physical Therapy Visit Type Type Treatment Note Visit Start Time 09:33 Visit Stop Time 09:45 Total Visit Minutes 12 Notes Spouse present for caregiver training. Number of MOTOR SETTER Visits 2 Physical Therapy Visit Comments Patient Comments Pt agreeable to work w/ therapy. M4 PT-IP Mobility and Gait Start: 12/07/21 12:46 Freq: NEEDED Status: Discharge Protocol: Document 12/08/21 09:33 [place] (Rec: 12/08/21 11:43 [place] [id number]) PT-Bed Mobility Assessment Rolling Type of Rolling Log Rolling,Roll to Right Level of Assist Contact Guard Assistance Supine to Sit Supine to Sit Contact Guard Assistance,1 Person Assistance Sit to Supine Sit to Supine Minimal Assistance,1 Person Assistance Scooting Scooting to Edge of Bed Contact Guard Assistance PT-Transfer Assessment Sit to and From Stand Sit to and from Stand Contact Guard Assistance,1 Person Assistance,Use of Upper Extremities Equipment Transfer Assistive Device Gait Belt,Front Wheeled Walker Orthotic/Prosthetic Devices or Brace: No Transfers Transfer Destination Bed Transfer Technique ambulated w/ FWW Transfer Ability Level of Assist Minimal Assistance Comments Mobility Comments Pt in bed and spouse in room. Pt able to recall 3/3 spinal precautions. Pts spouse provided appropriate assist and cues as needed throughout treatment. Pt CGA for logroll and sidelying<>sit, pt spouse able to don gaitbelt and pt scooted EOB CGA. CGA for sit<> Stand w/ FWW> Pt ambulated ~60 ft around room w/ spouse CGA w/ FWW. Pts spouse then provided Min A for pt sit<> sidelying for LE elevation. Pt and spouse state they feel safe to return home. Gait Assessment Gait Gait Assistance Required: Contact Guard Assist Distance (Feet) 60 Able to Maintain Weight Bearing Status Yes During Gait Assistive Devices Assistive Device Gait Belt,Front Wheeled Walker Gait Deviations General Gait Pattern Decreased Feet Clearance, Narrow Based Gait Factors Limiting Gait Function Factors Limiting Gait Function Decreased Activity Tolerance, Pain Comments Gait Comments Pt ambulated a total of 60 ft w/ FWW CGA, decreased foot clearance and NBOS. Good use of FWW and w/ good upright posture and forward gaze. Stair Climbing Assessment Comments Stair Climbing Comments pt does not wish to assess again as she successfully completed steps yesterday. PT-Balance Assessment Sitting Balance and Reactions Static Sitting Balance Ability Good Dynamic Sitting Balance Ability Fair Standing Balance and Reactions Static Standing Balance Ability Good Dynamic Standing Balance Ability Fair Device Used FWW M5 PT-IP Objective Assessments Start: 12/07/21 12:46 Freq: NEEDED Status: Discharge Protocol: Document 12/07/21 11:45 AB (Rec: 12/07/21 12:56 AB [id number]) Orientation Orientation/Cognition Level of Alertness Alert Orientation Name Language Function Ability No Deficits Noted Safety Awareness Decreased Safety Awareness Memory Description Short Term Impaired Gross Range of Motion Lower Extremity ROM Assessment Within Functional Limits Strength Lower Extremity Strength Assessment Bilaterally Impaired Hip 3+/5 Knee 4-/5 Sensation Assessment Sensation Gross Sensation WNL Muscle Tone Muscle Tone WNL Yes M6 PT-IP Treatment Start: 12/07/21 12:46 Freq: NEEDED Status: Discharge Protocol: Document 12/08/21 09:33 KS (Rec: 12/08/21 11:43 KS [id number]) Physical Therapy Treatment Education Education Provided Precautions,Weight Bearing Status,Safety Other Treatments Other Treatment Performed Completed caregiver training w / pts spouse who was able to prpvide appropriate assist for bed mobility, transfers, and ambulation and gait belt application. M7 PT-IP Assessment and Plan Start: 12/07/21 12:46 Freq: NEEDED Status: Discharge Protocol: Document 12/08/21 09:33 KS (Rec: 12/08/21 11:43 KS [id number]) PT Summary Assessment and Plan Potential Rehabilitation Potential Good Status of Condition at Evaluation Evolving Summary Impairments Pain,ROM,Strength,Balance, Coordination,Sensation,Tone, Cognition,Bed Mobility, Transfers,Gait,Activity Tolerance Assessment Summary Completed caregiver training w / pts spouse who was able to provide all necessary assist and cues, pt CGA for mobility, transfers, and ambulation w/ FWW as well as stairs aside from LE elevation into bed which she occassionally requires Min A for. Pt able to recall and adhere to precautions and states she feels safe and ready to return home w/ spouse support. Goals Bed Mobility Goal Standby Assistance Transfer Goal Standby Assistance,Front Wheeled Walker Gait Goal Standby Assistance,Front Wheel Walker Gait Distance 200 Other Goals up/down 16 steps B rails SBA Days to Meet Goals 10 Frequency of Treatment Frequency Of Treatment Twice a Day Treatment Plan Physical Therapy Treatment Plan Bed Mobility Training,Transfer Training,Gait Training, Therapeutic Exercise,Balance Retraining,Post Op Education, Discharge Planning,Hot or Cold Pack,Neuromuscular Re-ed, Coordination Retraining,Manual Therapy Precautions Lumbar Precautions Log Roll,No Twisting,Limit Bending,Lifting Restriction of 10 lbs,Gait Belt above Incisional Area Recommendations To Nursing Amount of Assist Needed 1 Person Assist Discharge Recommendations PT Discharge Recommendations Home with 29/04 Assist Available,Home Health Transportation Needs at Discharge Private Vehicle
--- NOTE | 2021-12-08 10:22 | PM.DS.1 ---
History of Present Illness History of Present Illness Date Patient Seen: 12/08/21 Time Patient Seen: 07:00 Chief complaint: OPB Narrative: Operative Date/Time/Diagnoses Date of procedure: 12/06/21 Time of procedure: 08:45 Pre-op diagnosis: 1. L5-S1 spondylolisthesis 2. L5-S1 spinal stenosis with radiculopathy Post-op diagnosis: same Procedure & Clinicians Procedure: 1. L5-S1 Postero-lateral and posterior interbody fusion 2. L5-S1 interbody cage placement. 3. L5-S1 decompressive laminectomy with bilateral facetecomies 4. L5-S1 Posterior non-segmental instrumentation 5. [place] of bone marrow from iliac crest 6. Utilization of microsurgical technique and operating microscope Same procedure as scheduled: Yes Indications: Patient has been having chronic back pain and worsening lumbar radiculopathy. Patient failed multiple conservative management with worsening pain weakness and numbness in her lower extremity.? Patient has been having difficulty performing activity of daily living.? After discussing risks benefits of treatment options, patient elected proceed with surgery. Surgeon: Birgit Macias Sleeping Car Service Attendant: Irina Gallardo Click Yes if Unassisted: No Anesthesia Type: General Operative Notes Closure Type: primary Specimen(s): none sent Prosthetic devices, grafts, tissues, transplants, or devices: Globus revolve screws, Sable Cage Estimated Blood Loss (mL): 50 Blood products transfused: noneOperative Date/Time/Diagnoses Date of procedure: 12/06/21 Time of procedure: 08:45 Pre-op diagnosis: 1. L5-S1 spondylolisthesis 2. L5-S1 spinal stenosis with radiculopathy Post-op diagnosis: same Procedure & Clinicians Procedure: 1. L5-S1 Postero-lateral and posterior interbody fusion 2. L5-S1 interbody cage placement. 3. L5-S1 decompressive laminectomy with bilateral facetecomies 4. L5-S1 Posterior non-segmental instrumentation 5. [place] of bone marrow from iliac crest 6. Utilization of microsurgical technique and operating microscope Same procedure as scheduled: Yes Indications: Patient has been having chronic back pain and worsening lumbar radiculopathy. Patient failed multiple conservative management with worsening pain weakness and numbness in her lower extremity.? Patient has been having difficulty performing activity of daily living.? After discussing risks benefits of treatment options, patient elected proceed with surgery. Surgeon: Birgit Macias Sleeping Car Service Attendant: Irina Gallardo Click Yes if Unassisted: No Anesthesia Type: General Operative Notes Closure Type: primary Specimen(s): none sent Prosthetic devices, grafts, tissues, transplants, or devices: Globus revolve screws, Sable Cage Estimated Blood Loss (mL): 50 Blood products transfused: none Discharge Providers Provider Date of admission: 12/07/21 16:16 Discharge Date: 12/08/21 Primary care physician: Ronnell Hernandez MD Consults: 12/06/21 13:33 Consult to Occupational Therapy Evaluate & Treat Comment: Physician Instructions: Evaluate and treat Consult to Physical Therapy Evaluate & Treat Comment: Physician Instructions: Evaluate and Treat Discharge provider: Irina Gallardo PA-C Summary Hospital Course Discharge Diagnosis: s/p lumbar fusion Hospital Course: Ms Martin's hospital course was significant only for issues with pain control. On day of discharge she was feeling well and wanted to go home. She had adequate pain control with hydromorphone, oxycodone, ibuprofen, and diazepam. She has support and help at home from her . She was eating and voiding without difficulty or assistance and ambulating with the aid of a walker. Exam Vital Signs (past 8 hours): - 12/08/21 04:36 Temperature 97.8 F Pulse Rate 74 Respiratory Rate 16 Blood Pressure 101/66 Pulse Oximetry 94 Fraction of Inspired Oxygen 21 Oxygen Delivery Method Room Air Oxygen Flow Rate 0 Narrative Exam Narrative: AA&O x 3. 5/5 strength in quadriceps, hamstrings, DF, PF, and EHL bilaterally. Sensation to light touch intact in BLE. Calves soft, compressible, and nontender with no palpable cords or masses. Dressing with old bloody drainage; no active drainage. PFSH Medical History Anxiety Asthma Depression Easy bruisability HLD (hyperlipidemia) Sinus drainage Spinal stenosis Spondylolisthesis Surgical History History of section History of hysterectomy [place] teeth removed Social History household members: spouse and children Smoking Status: Current every day smoker alcohol intake: current Discharge Assessment & Plan Assessment and Plan Assessment: POD#2 s/p L5-S1 transforaminal lumbar interbody fusion. Recovery progressing as expected. Plan of Treatment: Discharge home. Discharge Plan Discharge Plan Patient Disposition: Home Discharge orders & Medications Prescriptions: New diazepam 5 mg Tablet 5 mg PO Q8HR PRN (Reason: Spasms) Qty: 90 0RF docusate sodium 100 mg Capsule 100 mg PO BID Qty: 60 2RF hydromorphone 2 mg Tablet 2 mg PO Q6H PRN (Reason: Pain, Severe (7-10)) Qty: 10 0RF oxycodone 5 mg tablet 5 mg PO Q4H PRN (Reason: pain (scale score 7-10)) Qty: 60 0RF Continued oxybutynin chloride 15 mg Tablet Extended Release 24 Hr 15 mg PO DAILY 0RF atorvastatin 10 mg Tablet 10 mg PO BEDTIME 0RF sertraline 100 mg Tablet 100 mg PO BID 0RF meclizine 25 mg Tablet 25 mg PO DAILY 0RF lorazepam 1 mg Tablet 1 mg PO QAM 0RF albuterol sulfate 90 mcg/actuation Hfa Aerosol Inhaler 2 puff INHALATION Q4-6H PRN (Reason: Shortness Of Breath) 0RF Follow up/Referrals: Ronnell Hernandez MD [Primary Care Provider] - Birgit Macias MD [Physician] - As previously scheduled (Follow up with Irina Gallardo PA-C, on 12/19/2021 @ 11:30 at [facility].) Diet/Activity/Treatments Diet: Diet as Tolerated Activity: Activity as tolerated. Walk frequently. No deep bending (more than 90 degrees) or twisting at the waist. Lifting limit is 10 pounds. Skin/Wound/Dressing Care Report to your healthcare provider any signs of infection, such as:: chills, fever, night sweats, increased pain, unusual drainage and unusual redness Dressing: May shower. Keep incisions as dry as possible. Remove top dressing if it becomes wet inside. Do not soak incisions or put any creams, lotions, or ointments on them. Visit Report/Discharge Packet Instructions: DI for Constipation, How to Prevent Falls, DI for Prescription Opioid Use, DI for Taking Pain Medication, DI for Transforaminal Lumbar Interbody Fusion Stand Alone Forms: Surgery Discharge Discharge Data Primary Care Provider: Ronnell Hernandez Attending Provider: Birgit Macias Quality VTE Deep Vein Thrombosis/Pulmonary Embolism Present on Admission: No
--- NOTE | 2021-12-08 10:23 | OT.IP.TRT ---
Current Diagnoses Spondylolisthesis, lumbosacral region (12/07/21) Spinal stenosis, lumbar region without neurogenic claudication (12/07/21) Arthrodesis status (12/07/21) Surgery Performed Operation Date: 12/06/21 08:45 Actual Procedures p L5-S1 TLIF(Not Applicable) - Birgit Macias MD Occupational Therapy Treatment Note M2 OT-IP Current Condition Start: 12/07/21 12:21 Freq: Status: Active Protocol: Document 12/07/21 10:37 [facility] (Rec: 12/07/21 12:54 [facility] [id number]) Occupational Therapy Current Condition Current Condition Evaluation Date 12/07/21 Treatment Diagnosis S/p L5-S1 TLIF Diagnosis Onset Date 12/06/21 M3 OT- IP Subjective and Pain Start: 12/07/21 12:21 Freq: Status: Active Protocol: Document 12/08/21 10:25 [facility] (Rec: 12/08/21 10:35 [facility] [id number]) OT- Subjective Occupational Therapy Visit Type Type Treatment Note Visit Start Time 09:50 Visit Stop Time 10:23 Total Visit Minutes 33 Occupational Therapy Visit Comments Patient Comments Pt wanting to shower, pt's present and mainly just wanting to watch for caregiver training for the shower. Patient/Caregiver Goals to go home OT Pain Assessment Pain When Pain Assessed During Mobility Pain Present Pain Present Pain Reported M4 OT- IP ADL's Start: 12/07/21 12:21 Freq: Status: Active Protocol: Document 12/08/21 10:25 [facility] (Rec: 12/08/21 10:35 [facility] [id number]) OT ADL-Dressing General Eval Upper Body Dressing Ability Minimal Assistance Lower Body Dressing Ability Moderate Assistance,Maximum Assistance Areas Needing Assistance Underpants/Brief,Pants/Shorts Comments OT Dressing Comments Pt not interested in using LB dressing equipment therefore needing assist for socks and to get her brief over her feet and then able to pull everything up. OT ADL-Toileting General Evaluation Toileting Ability Standby Assistance,Maximum Assistance Areas Needing Assistance Perform Perineal Hygiene Comments OT Toileting Comments Pt able to wipe appropriately after urination, but still would need assist after a bowel movement. OT ADL-Bathing Bathing Type Bathing Type Shower General Evaluation Bathing Ability Moderate Assistance Areas Needing Assistance Wash/Dry Back,Wash/Dry Lower Extremities Comments OT Bathing Comments Educated whether assist for hygiene or use of long thin towel between her legs so able to do it on her own and have her assist to hold onto her for balance. M5 OT- IP IADL's Start: 12/07/21 12:21 Freq: Status: Active Protocol: Document 12/07/21 10:37 [facility] (Rec: 12/07/21 12:54 [facility] [id number]) OT-Instrumental Activities of Daily Living Home Safety Awareness Home Safety Comments Pt a little groggy and needing cues for back precautions and safety. At this time would be beneficial to have her to assist her for all her needs. M6 OT- IP Functional Cognition Start: 12/07/21 12:21 Freq: Status: Active Protocol: Document 12/08/21 10:25 [facility] (Rec: 12/08/21 10:35 [facility] [id number]) Cognitive Factors Limiting Selfcare Function Cognitive Comments Cognitive Assessment Comments Intact M7 OT- IP Mobility and Balance Start: 12/07/21 12:21 Freq: Status: Active Protocol: Document 12/08/21 10:25 [facility] (Rec: 12/08/21 10:35 [facility] [id number]) OT- Bed Mobility Assessment Supine to Sit Supine to Sit Assist Standby Assistance Sit to Supine Sit to Supine Assist Standby Assistance OT-Transfer Assessment Sit to and From Stand Sit to and from Stand Minimal Assistance Transfers Transfer Ability Contact Guard Assistance Technique Transfer Destination Bed,Chair,Toilet Devices Transfer Assistive Devices Gait Belt,Front Wheeled Walker Comments Mobility Comments Pt moving much better today however at times leans to the right. Edcuated to if gait belt not available to hold her by the hips especially when assist to help stand her from a lower surface. OT- Balance Assessment Sitting Balance and Reactions Static Sitting Balance Ability Good Dynamic Sitting Balance Ability Good Standing Balance and Reactions Static Standing Balance Ability Fair M9 OT- IP Assessment and Plan Start: 12/07/21 12:21 Freq: Status: Active Protocol: Document 12/08/21 10:25 [facility] (Rec: 12/08/21 10:35 [facility] [id number]) OT Summary Assessment and Plan Potential Rehabilitation Potential Good Analytic Complexity at Evaluation Low Summary Progress Towards Goals Progressing Toward Goals Assessment Summary ABle to do caregiver training with pt's and states good understanding to be able to assist pt for all needs. Pt 's not wanting to actively participate in the shower as wanting to watch , but he was able to assist with her dressing needs. Pt going home today. Pt states skin feeling itchy and able to notify nursing and she suggested that pt take Benadryl later. Goals Days to Meet Goals 3 Frequency of Treatment Frequency Of Treatment Once a Day Treatment Plan OT Treatment Plan ADL Training,Functional Cognition Training,Functional Mobility,Patient/Family Education,Discharge Planning Discharge Recommendations OT Discharge Recommendations Home with 24/ Assist Available Home Equipment Needs FWW Transportation Needs at Discharge Private Vehicle
--- NOTE | 2021-12-08 10:53 | PC.NURSE ---
Discharge: Pt feels ready to d/c to home. Seen by PA and given d/c instructions. Seen by PT and given final instructions. OT gave shower, dressing was changed at that time. Has sl redenss were tape was but except for sm spot on 1 incision there is no redness. New dressing is a coversite which is hypoallergenic. Spouse instructed to keep an eye on same. Given 1 new dressing in case there is any problems. Vds w/out diff. Tolerates diet w/out problems. No bm yet and reviewed information for constipation. Reviewed d/c packet. Rx has been esent. Questions were answered. Pt d/c to home via auto w/spouse.
--- NOTE | 2021-12-08 14:03 | CM.DPNOTE ---
DC Note DC home with supportive spouse today; no need for HH JW
== END 2021-12-08 10:50 | disposition home or self-care (01) ==
LOC: OR 16:30 → AC 16:30
PROVIDERS: Admitting Provider Orthopaedic Surgery Orthopaedic Surgery of the Spine; PCP Internal Medicine; Referring Provider Orthopaedic Surgery Orthopaedic Surgery of the Spine; Visit Provider Orthopaedic Surgery Orthopaedic Surgery of the Spine
PROC: (CPT 20939; principal; 2021-12-06 08:45)
DX: M48.061 Spinal stenosis, lumbar region without neurogenic claudication (principal); M54.16 Radiculopathy, lumbar region; M43.17 Spondylolisthesis, lumbosacral region
CPT/HCPCS: 20939; 22853; 63052; 22633; 22840; 72100; 76000; 82962; 94760; 97116; 97162; 97165; 97530; 97535; 99406; G0378; C1713; C9290; J0171; J0330; J0690; J1100; J1170; J2405; J2704; J3010